=== PATIENT | male | born 1985 | race Caucasian/White ===

== ENCOUNTER 2023-12-17 16:13 | Inpatient (IN) | payer OTHER, SELFPAY ==
[2023-12-17 17:10] VITALS: BP 108/83; PULSE 112; RESP 16; TEMP 36.6; O2SAT 99; BMI 36.7
--- NOTE | 2023-12-17 17:10 | ED_ITS ---
HPI - Psych General Chief Complaint: Psychiatric Symptoms Stated Complaint: crisis eval Time Seen by Provider: 12/17/23 18:27 Source: patient Mode of arrival: ambulatory Limitations: no limitations History of Present Illness HPI Narrative: Patient comes to the emergency room complaining of suicidal ideation. Patient states that he has history of depression anxiety, taking medications, sometimes forgets. Patient denies any triggers. Patient denies homicidal ideation. Patient denies trying to hurt himself before coming into the hospital. Patient states that yesterday when it was in the shower, was considering slitting his wrists. Of note, it was noticed that patient has stopped taking spironolactone and estrogen about 1 week ago. Patient states that it has not working well for him. Patient did not verbalize it, but this may be a reason why he is depressed. Related Data Home Medications Medication Instructions Recorded Confirmed aripiprazole 15 mg tablet 15 mg PO DAILY 12/17/23 12/17/23 bupropion HCl 150 mg 24 hr tablet, 150 mg PO QAM 12/17/23 12/17/23 extended release hydroxyzine pamoate 25 mg capsule 25 mg PO BID 12/17/23 12/17/23 trazodone 100 mg tablet 100 mg PO BEDTIME 12/17/23 12/17/23 Allergies Allergy/AdvReac Type Severity Reaction Status Date / Time No Known Allergies Allergy Unverified 07/26/20 18:52 [No Known Allergies*] Environmental Allergy Unknown Uncoded 08/22/15 00:00 Review of Systems 2 Review of Systems: Constitutional : No Weight loss, No Fever, No Chills, No Night Sweats, No Fatigue, No Malaise ENT/Mouth : No Hearing loss, No Ear Pain, No Nasal Congestion, No Sinus Pain, No Hoarseness, No sore throat, No Rhinorrhea, No Swallowing Difficulty Eyes: No Eye Pain, No Swelling, No Redness, No Foreign Body, No Discharge, No Vision Changes Cardiovascular : No Chest Pain, No SOB, No Dyspnea on Exertion, No Orthopnea, No Edema, No Palpitations Respiratory : No Cough, No Sputum, No Wheezing, No Smoke Exposure, No Dyspnea Gastrointestinal : No Nausea, No Vomiting, No Diarrhea, No Constipation, No abdominal Pain, No Hematochezia, No Melena Genitourinary : no irregular bleeding, No Dysuria, No Urinary Frequency, No Hematuria, No Urinary Incontinence, No Urgency, No Flank Pain, No Urinary Flow Changes, No Hesitancy Musculoskeletal : No joint pain, No Myalgias, No Joint Swelling Skin : No Skin Lesions, No rash Neuro : No Weakness, No Numbness, No Paresthesias, No Loss of Consciousness, No Dizziness, No Headache Psych : No Anxiety/Panic, complaining of depression, SI, no HI Heme/Lymph: No Bruising, No Bleeding,No Lymphadenopathy Endocrine : No Polyuria, No Polydipsia, No Temperature Intolerance [facility] Past Medical History Medical History (Updated 12/17/23 @ 19:11 by Mickie Samaniego MD) Depression Social History Social History Advance Directives: No Advance Directives Information Provided: No Physical Exam 2 Vital Signs: Vital Signs: Last Vital Signs Temp 97.8 F 12/18/23 00:15 Pulse 82 12/18/23 00:15 Resp 16 12/18/23 00:15 BP 110/87 12/18/23 00:15 Pulse Ox 97 12/18/23 00:15 O2 Del Method Room Air 12/18/23 00:15 BMI result Body Mass Index 36.7 Const: Other: Appearance: Alert. Oriented X3. No acute distress. Eyes: Pupils equal, round and reactive to light. ENT: Pharynx normal. Neck: Normal inspection. Neck supple. No lymph nodes noted. No crepitus CVS: Normal heart rate and rhythm. Pulses normal. Normal S1 and S2 Respiratory: No respiratory distress. Breath sounds normal. No Wheezing. No rales Abdomen: Soft and nontender. No rigidity. No distention. Skin: Skin warm and dry. Normal skin color. Normal skin turgor. Extremities: No lower extremity edema. No Lacerations. No Rash Neuro: Oriented X 3. No motor deficit. No sensory deficit. Moving all extremities. No slurred speech. CN 2 through 12 grossly intact Psych: calm, cooperative, normal affect Course Course Course Narrative: RME: Seen by mobile crisis unit at [facility] and could not contract for safety. States he expressed thoughts of suicide. Told he needed to go inpatient. Reevaluation(s) Time: 07:21 Reevaluation #2: Physician observation continued. VS stable CARE team pending. no acute events overnight. dispo per CARE team assessment. Medical Decision Making Medical Decision Making [facility] Narrative: -my interpretation of labs: Normal hematology and chemistry, negative ETOH, urinalysis pending. -care consult pending -physician observation started at 19:00 Differential Diagnosis Differential Diagnoses: The differential diagnosis associated with the presentation includes (Anxiety, depression, SI) Admission/Observation Consideration of admission/observation: Escalation of care including admission/observation considered (Patient is waiting to be seen by the care team to determine disposition) Lab Data MDM Lab Attestation statement: I reviewed the patient's lab results. 12/17/23 17:38 12/17/23 17:38 Labs: Lab Results 12/17/23 12/17/23 12/17/23 Range/Units 17:38 18:46 19:07 WBC 10.2 (4.8-10.8) X10*3/uL RBC 4.77 (4.60-5.80) X10*6/uL Hgb 14.8 (14.0-18.0) g/dl Hct 41.9 L (42.0-52.0) % MCV 87.8 (80.0-98.0) fL MCH 31.0 (27.0-33.0) pg MCHC 35.3 (31.0-36.0) g/dl RDW 13.5 (11.0-16.0) % Plt Count 281 (160-400) X10*3/uL MPV 9.5 (9.4-12.4) fL Immature Gran % (Auto) 0.2 (0.0-0.4) % Neut % (Auto) 55.2 (45-73) % Lymph % (Auto) 34.6 (20-40) % [place] % (Auto) 6.5 (2-11) % Eos % (Auto) 3.1 (0-4) % Baso % (Auto) 0.4 (0-2) % Lymph # (Auto) 3.5 (1.2-4.9) X10*3/uL [place] # (Auto) 0.7 (0.1-1.2) X10*3/uL Eos # (Auto) 0.3 (0.0-0.4) X10*3/uL Baso # (Auto) 0.0 (0.0-0.2) X10*3/uL Abs Immat Gran (auto) 0.02 (0.00-0.03) X10*3/uL Absolute Neuts (auto) 5.6 (2.0-8.3) x10*3/uL Absolute Nucleated RBC 0.000 (0.0-0.012) X10*3/uL Nucleated RBC % (auto) 0.0 (0.0-0.2) /100WBC Sodium 137 (135-145) mmol/L Potassium 3.9 (3.3-5.1) mmol/L Chloride 104 (96-108) mmol/L Carbon Dioxide 22 (22-29) mmol/L Anion Gap 15 (12-20) BUN 14 (9-16) mg/dL Creatinine 1.08 (0.5-1.4) mg/dL Estim Creat Clear Calc 127.9 Estimated GFR > 60 Random Glucose 102 (60-115) mg/dL Calcium 9.4 (8.4-10.2) mg/dL Total Bilirubin 0.2 (0.0-1.0) mg/dL AST 27 (5-37) U/L ALT 44 H (0-40) U/L Alkaline Phosphatase 74 (39-117) U/L Total Protein 7.8 (6.5-8.0) g/dL Albumin 4.1 (3.5-5.0) g/dL Urine Color Yellow Urine Appearance Clear Urine pH 5.5 (5.0-9.0) Ur Specific [place] >= 1.030 H (1.005-1.025) Urine Protein Trace (Neg-Trace) mg/dL Urine Glucose (UA) Negative (Negative) mg/dL Urine Ketones Trace (Negative) mg/dL Urine Blood Negative (Negative) Urine Nitrite Negative (Negative) Ur Leukocyte Esterase Negative (Negative) Urine RBC 0-2 (0-2) /HPF Urine WBC 0-5 (0-5) /HPF Ur Squamous Epith Cells 0-2 (0-2) /HPF Urine Bacteria None Seen (None Seen) Hyaline Casts 0-2 (0-2) /LPF Urine Opiates Screen Not Detected (Not Detect) Urine Fentanyl Screen Not Detected (Not Detect) Ur Barbiturates Screen Not Detected (Not Detect) Ur Phencyclidine Scrn Not Detected (Not Detect) Ur Amphetamines Screen Not Detected (Not Detect) U Benzodiazepines Scrn Not Detected (Not Detect) Urine Cocaine Screen Not Detected (Not Detect) U Marijuana (THC) Screen Not Detected (Not Detect) Ethyl Alcohol < 10 mg/dL COVID-19 ([facility]) Negative (Negative) COVID-19 Clin Com See Note Critical Care Time Critical Care Time Critical Care Time: Yes Total Critical Care Time: 30 Attestation: I have personally provided critical care time. Time includes review of lab data, radiology results, discussion with consultants, and monitoring for potential decompensation. Intervention performed as documented. Discharge Plan Discharge Clinical Impression: Depression, Suicidal ideation Patient Disposition: Still a Patient Prescriptions: No Action trazodone 100 mg tablet 100 mg PO BEDTIME hydroxyzine pamoate 25 mg capsule 25 mg PO BID aripiprazole 15 mg tablet 15 mg PO DAILY bupropion HCl 150 mg tablet extended release 24 hr 150 mg PO QAM Interventions: [place]-Suicide Risk Severity Scale Last Done: 12/18/23 00:57
--- NOTE | 2023-12-17 17:14 | ECG_ITS ---
Test Reason : PSYCH MEDS Blood Pressure : / mmHG Vent. Rate : 100 BPM Atrial Rate : 100 BPM P-R Int : 146 ms QRS Dur : 072 ms QT Int : 320 ms P-R-T Axes : 060 069 043 degrees QTc Int : 412 ms Normal sinus rhythm Normal ECG No previous ECGs available Referred By: Luna Avalos Electronically Signed By:SHARLENE WRIGHT
[2023-12-17 17:50] LABS: MANUAL DIFF FLAG NO
[2023-12-17 17:52] LABS: Basophils Percent Auto 0.4 % (0-2); Eosinophils Absolute Auto 0.3 X10*3/uL (0.0-0.4); Eosinophils Percent Auto 3.1 % (0-4); Hematocrit 41.9 % (42.0-52.0); Hemoglobin 14.8 g/dl (14.0-18.0); Imm Gran Abs Auto 0.02 X10*3/uL (0.00-0.03); Imm Gran Pct Auto 0.2 % (0.0-0.4); Lymphocytes Absolute Auto 3.5 X10*3/uL (1.2-4.9); Lymphocytes Percent Auto 34.6 % (20-40); Mean Corpuscular HGB Conc 35.3 g/dl (31.0-36.0); Mean Corpuscular Volume 87.8 fL (80.0-98.0); Mean Platelet Volume 9.5 fL (9.4-12.4); Monocytes Absolute Auto 0.7 X10*3/uL (0.1-1.2); Monocytes Percent Auto 6.5 % (2-11); Neutrophils Absolute Auto 5.6 x10*3/uL (2.0-8.3); Neutrophils Percent Auto 55.2 % (45-73); Platelet Count 281 X10*3/uL (160-400); Red Blood Count 4.77 X10*6/uL (4.60-5.80); Red Cell Distribution Width 13.5 % (11.0-16.0); White Blood Count 10.2 X10*3/uL (4.8-10.8)
[2023-12-17 18:05] LABS: Alanine Aminotransferase 44 U/L (0-40); Albumin Level 4.1 g/dL (3.5-5.0); Alkaline Phosphatase 74 U/L (39-117); Anion Gap 15 (12-20); Aspartate Amino Transferase 27 U/L (5-37); Bilirubin Total 0.2 mg/dL (0.0-1.0); Blood Urea Nitrogen 14 mg/dL (9-16); Calcium 9.4 mg/dL (8.4-10.2); Carbon Dioxide 22 mmol/L (22-29); Chloride 104 mmol/L (96-108); Creatinine Clr Calc Pharmacy 127.9; Estimated Glomerular Filt Rate > 60; Ethanol < 10 mg/dL; Glucose Random 102 mg/dL (60-115); Potassium 3.9 mmol/L (3.3-5.1); Sodium 137 mmol/L (135-145); Total Protein 7.8 g/dL (6.5-8.0)
--- NOTE | 2023-12-17 18:32 | PC.NURSE ---
Self presented to the ED and reports he was told by [facility] to go to the emergency dept to get an inpatient bed . No crisis assessment or section 12. Manny reports he recently stopped his Spironalactone and estradiol. he stated it wasn't working out . Med rec completed with list from [facility] where he reports he is living. Compliant with changeover and labs pending.
[2023-12-17 19:03] LABS: COVID-19 Test Negative (Negative); IDNOW Serial# 55D5AD1C
[2023-12-17 19:16] LABS: Appearance Urine Clear; Color Urine Yellow; Glucose Urine UA Negative (Negative); Leukocyte Esterase Urine Negative (Negative); Nitrite Urine Negative (Negative); PH 5.5 (5.0-9.0); Specific Gravity - Urine >= 1.030 (1.005-1.025); Urine Blood Negative (Negative); Urine Ketones Trace mg/dL (Negative); Urine Protein Trace mg/dL (Neg-Trace)
[2023-12-17 19:21] LABS: Bacteria Urine None Seen (None Seen); Hyaline Casts Urine 0-2 /LPF (0-2); RBC Urine 0-2 /HPF (0-2); Squamous Epithelial Cell Urine 0-2 /HPF (0-2); WBC Urine 0-5 /HPF (0-5)
[2023-12-17 19:22] LABS: Amphetamine Screen Urine Not Detected (Not Detect); Barbiturates, Urine Not Detected (Not Detect); Benzodiazepines Screen Urine Not Detected (Not Detect); Cannabinoid Screen Urine Not Detected (Not Detect); Cocaine Screen Urine Not Detected (Not Detect); Fentanyl, urine Not Detected (Not Detect); Opiate Screen Urine Not Detected (Not Detect); Phencyclidine Screen Urine Not Detected (Not Detect)
[2023-12-18 00:15] VITALS: BP 110/87; PULSE 82; RESP 16; TEMP 36.6; O2SAT 97
[2023-12-18 16:52] VITALS: RESP 18
--- NOTE | 2023-12-18 17:45 | PC.NURSE ---
Manny in his room or in common areas this shift. Pleasant when engaged. No behavioral concerns. Appetite good. Ambulates independently. Does endorse passive SI. Feels safe while in hospital.
[2023-12-18 22:23] VITALS: BP 135/81; PULSE 102; RESP 16; TEMP 36.2; O2SAT 99
[2023-12-18 22:40] VITALS: BMI 36.2
[2023-12-18] MEDS: traZODone HCL 100 MG TABLET PO (22:50)
[2023-12-18] MEDS: hydrOXYzine HCL 25 MG TABLET PO (22:51)
[2023-12-18] MEDS: Ondansetron ODT 4 MG TAB.RAPDIS TRANSLINGU (22:51)
[2023-12-18] MEDS: buPROPion HCl XL 150 MG TAB.ER.24H PO (22:51)
--- NOTE | 2023-12-19 01:17 | PC.ADMIT ---
Manny is a 38yo male, admitted to the unit from [facility] on CV for treatment of Bipolar disorder. He presents with limited judgement and impulsitivity as evidenced his history of self-harm and suicide attempts. He does considered himself to be transgender although uses he/him pronouns. He did indicates history of depressive symptoms, SI, and PTSD. Pt is A&O X4, calm and pleasant on approach. He vomited x1 during the unit admission process, PRN Zofran administered. states it maybe due to stress. He endorses SI with no plan, denies HI/AVH, med compliant and reports being safe on the unit. Skin check done, he signed all authorization forms except PCP form, states he does not have PCP. Treatment plan and safety tools initiated but yet to be sign.
[2023-12-19 07:35] VITALS: BP 111/62; PULSE 66; RESP 14; TEMP 36.2; O2SAT 98
[2023-12-19 07:40] LABS: Alanine Aminotransferase 51 U/L (0-40); Albumin Level 4.1 g/dL (3.5-5.0); Alkaline Phosphatase 69 U/L (39-117); Anion Gap 14 (12-20); Aspartate Amino Transferase 29 U/L (5-37); Bilirubin Total 0.5 mg/dL (0.0-1.0); Blood Urea Nitrogen 17 mg/dL (9-16); Calcium 8.9 mg/dL (8.4-10.2); Carbon Dioxide 23 mmol/L (22-29); Chloride 105 mmol/L (96-108); Cholesterol 295 mg/dL (<200); Creatinine Clr Calc Pharmacy 125.8; Estimated Glomerular Filt Rate > 60; Glucose Fasting 123 mg/dL (60-99); HDL Cholesterol 29 mg/dL (>40); Potassium 4.1 mmol/L (3.3-5.1); Sodium 138 mmol/L (135-145); Total Protein 7.3 g/dL (6.5-8.0); Triglycerides 571 mg/dL (<150)
[2023-12-19] MEDS: ARIPiprazole 15 MG TABLET PO (08:31)
[2023-12-19] MEDS: buPROPion HCl XL 150 MG TAB.ER.24H PO (08:31)
[2023-12-19] MEDS: hydrOXYzine HCL 25 MG TABLET PO ×2 (08:31→20:50)
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
[2023-12-19] MEDS: Prazosin HCL 1 MG CAPSULE PO (20:49)
[2023-12-19] MEDS: traZODone HCL 100 MG TABLET 200 MG PO (20:50)
[2023-12-19 20:55] VITALS: BP 115/72; PULSE 100; RESP 14; TEMP 37.1; O2SAT 100
[2023-12-20 07:30] VITALS: BP 92/50; PULSE 84; RESP 16; TEMP 36.2; O2SAT 95
--- NOTE | 2023-12-20 08:16 | P.PNPSI_ITS ---
Subjective Subjective Date of Service: 12/20/23 Reason For Visit: crisis Subjective Notes: Conditional Voluntary Interim History: Patient was seen and discussed in rounds today. Records and plans were reviewed. He is settling into his admission. He has been medication compliant. He had a better night sleep with prazosin. No groups attended. Tolerating the increased dose of Abilify 20 mg. No complaints. No changes were made today Review of Systems Review of Systems Yes all other systems are reviewed and are negative Mental Status Exam Mental Status Exam Patient Appearance: Unkempt Patient Orientation: Person, Place, Time and Situation Level of Consciousness: Alert Patient Behavior: Appropriate Mood Description: Depressed Affect Description: Depressed Ability to Follow Directions: Excellent Memory Description: Intact Hallucinations: None Delusions: Not Present Thought Process: Linear Depressive Symptoms: Insomnia, Loss of Int. in Activity, Increased Fatigue, Thoughts of /Suicide, Low Self Esteem and Loss of Energy Judgement: Fair Diagnostics Vital Signs (24Hr): Vital Signs - 24 hr 12/19/23 20:55 Temperature 98.8 F Pulse Rate 100 Respiratory Rate 14 Blood Pressure 115/72 Pulse Oximetry 100 Oxygen Delivery Method Room Air BMI result Body Mass Index 36.2 Labs 12/17/23 17:38 12/19/23 07:12 Labs: Laboratory Results - last 48 hr 12/19/23 07:12 Sodium 138 Potassium 4.1 Chloride 105 Carbon Dioxide 23 Anion Gap 14 BUN 17 H Creatinine 1.09 Estim Creat Clear Calc 125.8 Estimated GFR > 60 Fasting Glucose 123 H Calcium 8.9 Total Bilirubin 0.5 AST 29 ALT 51 H Alkaline Phosphatase 69 Total Protein 7.3 Albumin 4.1 Triglycerides 571 H Cholesterol 295 H LDL Cholesterol, Calc TNP HDL Cholesterol 29 L Medications Medications Current Medications Acetaminophen (Acetaminophen 325 Mg Tablet) 650 mg PO Q6H PRN PRN Reason: Headache/Pain Mild Scale (1-3) Al Hydroxide/Mg Hydroxide (Magnesium Hydrox/Alum Hydrox 30 Ml Oral.Susp) 30 ml PO Q6H PRN PRN Reason: Heartburn/Nausea Aripiprazole (Aripiprazole 20 Mg Tablet) 20 mg PO DAILY [facility] Bupropion HCl (Bupropion Hcl Xl 150 Mg Tab.Er.24h) 150 mg PO DAILY [facility] Last Admin: 12/19/23 08:31 Dose: 150 mg Hydroxyzine HCl (Hydroxyzine Hcl 25 Mg Tablet) 25 mg PO BID [facility] Last Admin: 12/19/23 20:50 Dose: 25 mg Magnesium Hydroxide (Milk Of Magnesia 30 Ml Oral.Susp) 30 ml PO DAILY PRN PRN Reason: Constipation Nicotine Polacrilex (Nicotine Polacrilex 2 Mg Gum) 2 mg BUCCAL Q2H PRN PRN Reason: Nicotine Cravings Ondansetron HCl (Ondansetron Odt 4 Mg Tab.Rapdis) 4 mg TRANSLINGU Q8H PRN PRN Reason: nausea, vomiting Last Admin: 12/18/23 22:51 Dose: 4 mg Prazosin HCl (Prazosin Hcl 1 Mg Capsule) 1 mg PO BEDTIME ROGERIO; Protocol Last Admin: 12/19/23 20:49 Dose: 1 mg Trazodone HCl (Trazodone Hcl 100 Mg Tablet) 200 mg PO BEDTIME ROGERIO Last Admin: 12/19/23 20:50 Dose: 200 mg Allergies Allergies Allergy/AdvReac Type Severity Reaction Status Date / Time No Known Allergies Allergy Unverified 07/26/20 18:52 [No Known Allergies*] Environmental Allergy Unknown Uncoded 08/22/15 00:00 Assessment & Plan Assessment & Plan (1) Bipolar affective disorder, depressed: Status: Acute Code(s): F31.30 - Bipolar disorder, current episode depressed, mild or moderate severity, unspecified Assessment and Plan: 12/20: Continue current regimen and plans (2) PTSD (post-traumatic stress disorder): Status: Acute Code(s): F43.10 - Post-traumatic stress disorder, unspecified Assessment and Plan: Add prazosin for nightmares Plan Increase Abilify to 20 mg, Continue Wellbutrin XL 150 mg. Increase trazodone to 200 mg Reason for continued inpatient stay Substantial Risk for: harm to self, harm to others and med/psych decompensation Time Spent With Patient Time: Total time managing care of this patient today ____ minutes.
[2023-12-20] MEDS: hydrOXYzine HCL 25 MG TABLET PO ×2 (08:37→22:30)
[2023-12-20] MEDS: buPROPion HCl XL 150 MG TAB.ER.24H PO (08:38)
[2023-12-20] MEDS: ARIPiprazole 20 MG TABLET PO (08:38)
[2023-12-20 21:15] VITALS: BP 124/74; PULSE 74; RESP 16; TEMP 36.1; O2SAT 97
[2023-12-20 22:20] VITALS: BP 109/66; PULSE 82
[2023-12-20] MEDS: traZODone HCL 100 MG TABLET 200 MG PO (22:30)
[2023-12-20] MEDS: Prazosin HCL 1 MG CAPSULE PO (22:30)
[2023-12-21 07:10] VITALS: BP 107/61; PULSE 82; RESP 12; TEMP 36.2; O2SAT 97
[2023-12-21] MEDS: ARIPiprazole 20 MG TABLET PO (09:37)
[2023-12-21] MEDS: buPROPion HCl XL 150 MG TAB.ER.24H PO (09:37)
[2023-12-21] MEDS: hydrOXYzine HCL 25 MG TABLET PO ×2 (09:37→22:09)
[2023-12-21] MEDS: Sertraline HCL 50 MG TABLET PO (12:37)
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
[2023-12-21 21:55] VITALS: BP 125/67; PULSE 77; RESP 16; TEMP 36.2; O2SAT 97
[2023-12-21] MEDS: Prazosin HCL 1 MG CAPSULE PO (22:09)
[2023-12-21] MEDS: traZODone HCL 100 MG TABLET 200 MG PO (22:09)
[2023-12-22 08:05] VITALS: BP 126/68; PULSE 68; RESP 16; TEMP 36.7; O2SAT 95
[2023-12-22] MEDS: hydrOXYzine HCL 25 MG TABLET PO ×2 (09:04→20:17)
[2023-12-22] MEDS: buPROPion HCl XL 150 MG TAB.ER.24H PO (09:04)
[2023-12-22] MEDS: Sertraline HCL 50 MG TABLET PO (09:04)
[2023-12-22] MEDS: ARIPiprazole 20 MG TABLET PO (09:04)
[2023-12-22] MEDS: Nicotine 21 MG PATCH.TD24 TRANSDERMA (10:01)
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
[2023-12-22 20:10] VITALS: BP 131/65; PULSE 83; RESP 16; TEMP 36.1; O2SAT 97
[2023-12-22] MEDS: Prazosin HCL 1 MG CAPSULE PO (20:15)
[2023-12-22] MEDS: traZODone HCL 100 MG TABLET 200 MG PO (20:16)
[2023-12-23 07:35] VITALS: BP 128/61; PULSE 84; RESP 14; TEMP 35.7; O2SAT 97
[2023-12-23] MEDS: ARIPiprazole 20 MG TABLET PO (08:29)
[2023-12-23] MEDS: buPROPion HCl XL 300 MG TAB.ER.24H PO (08:29)
[2023-12-23] MEDS: hydrOXYzine HCL 25 MG TABLET PO (08:29)
[2023-12-23] MEDS: Sertraline HCL 50 MG TABLET PO (08:30)
--- NOTE | 2023-12-23 12:11 | PC.NURSE ---
Patient easily engaged. Reports mood is stable, denies SI/HI plan or intent at this time. Denies perceptual disturbances, no overt psychosis or expressed delusions. Denies cravings or urges to use at this time. Planning to return to program. Eager to have a coffee and cigarette. Discharge paperwork reviewed with patient reported understanding. Medications reviewed with patient reports understanding. Follow up appointments reviewed with patient. All belongings taken with patient. Crisis information provided to patient. Information provided to patient regarding obtaining primary care through [facility].
== END 2023-12-23 11:27 | disposition home or self-care (01) | DRG 750 ==
LOC: HO.ED 22:17 → HO.PADLT16 12-18 14:49
PROVIDERS: Nurse Practitioner Family; Admitting Provider Registered Nurse; Emergency Provider Emergency Medicine; Visit Provider Psychiatry & Neurology Psychiatry
DX: F25.1 Schizoaffective disorder, depressive type (principal); R45.851 Suicidal ideations; F17.210 Nicotine dependence, cigarettes, uncomplicated; Z71.6 Tobacco abuse counseling; F43.12 Post-traumatic stress disorder, chronic; Z62.810 Personal history of physical and sexual abuse in childhood; Z20.822 Contact with and (suspected) exposure to COVID-19; Z79.899 Other long term (current) drug therapy
CPT/HCPCS: 36415; 80053; 80061; 80307; 81001; 85025; 87635; 93005; 99285

== ENCOUNTER → 2023-12-17 17:14 | Outpatient (BNV) | payer OTHER, SELFPAY | PROVIDERS: Admitting Provider Registered Nurse; Emergency Provider Emergency Medicine; Visit Provider Internal Medicine | DX: F31.30 Bipolar disorder, current episode depressed, mild or moderate severity, unspecified (principal) | CPT/HCPCS: 93010 ==

== ENCOUNTER → 2023-12-18 14:44 | Outpatient (BNV) | payer OTHER, SELFPAY | PROVIDERS: Admitting Provider Registered Nurse; Emergency Provider Emergency Medicine; Visit Provider Psychiatry & Neurology Psychiatry | DX: F31.30 Bipolar disorder, current episode depressed, mild or moderate severity, unspecified (principal); F43.11 Post-traumatic stress disorder, acute | CPT/HCPCS: 90792; 99231; 99232; 99238 ==